=== PATIENT | female | born 1965 | race Caucasian/White ===

== ENCOUNTER 2018-06-22 14:37 | Emergency (ER) | payer SELFPAY ==
[~2018-06-22] VITALS: Ht 165.1 cm; Wt 66.7 kg
[2018-06-22 14:51] VITALS: BP_SYST 156
[2018-06-22 15:54] LABS: BILIRUBIN,URINE NEGATIVE (NEGATIVE); BLOOD, URINE 1+ (NEGATIVE); CLARITY/URINE CLOUDY (CLEAR); COLOR,URINE YELLOW (YELLOW); GLUCOSE,URINE NEGATIVE (NEGATIVE); KETONES,URINE NEGATIVE (NEGATIVE); LEUKOCYTE ESTERASE ,URINE 2+ (NEGATIVE); NITRITE, URINE POSITIVE (NEGATIVE); PROTEIN URINE NEGATIVE (NEGATIVE); UROBILINOGEN,URINE 0.2 (0.2-1.0)
[2018-06-22 17:00] LABS: BACTERIA,URINE MANY /HPF (None Seen); MUCUS,URINE 1+ /LPF (None Seen); WBC,URINE 20-50 /HPF (0-3)
[2018-06-22] MEDS ORDERED: NACL 0.9% 1,000 ML IV ONE (17:25)
[2018-06-22] MEDS ORDERED: fentaNYL CITRATE/PF 100 MCG/2 ML AMP IVP ONE ×2 (17:30→19:15)
[2018-06-22] MEDS ORDERED: KETOROLAC TROMETHAMINE 60 MG/2 ML VIAL IM ONE (17:30)
[2018-06-22] MEDS ORDERED: cefTRIAXone 1 GM IVPB PREMIX 50 ML IV ONE (17:30)
[2018-06-22] MEDS ORDERED: ONDANSETRON HCL 4 MG/2 ML VIAL IVP ONE ×2 (17:30→19:15)
[2018-06-22 17:47] LABS: BASOPHILS % (AUTO) 0.4 % (0.0-2.0); EOSINOPHILS # (AUTO) 0.1 K/uL (0.0-0.4); EOSINOPHILS % (AUTO) 2.1 % (0.0-4.0); HEMATOCRIT 41.8 % (36-48); HEMOGLOBIN 14.4 g/dL (12.0-16.0); LYMPHOCYTES # (AUTO) 1.7 K/uL (1.0-5.5); LYMPHOCYTES % (AUTO) 29.7 % (20.5-51.5); MEAN CORPUSCULAR HEMOGLOBIN 30 pg (27-31); MEAN CORPUSCULAR HGB CONC 34 % (32-36); MEAN CORPUSCULAR VOLUME 87 fL (79.0-98.0); MONOCYTES # (AUTO) 0.3 K/uL (0.0-1.0); MONOCYTES % (AUTO) 5.4 % (1.7-9.3); NEUTROPHILS # (AUTO) 3.7 K/uL (1.8-7.7); NEUTROPHILS % (AUTO) 62.4 % (40.0-70.0); PLATELET COUNT (AUTO) 244 K/uL (130-430); RED BLOOD CELL COUNT(AUTO) 4.79 MIL/uL (4.2-6.2); RED CELL DISTRIBUTION WIDTH 11.8 % (9.0-15.0); WHITE BLOOD COUNT (AUTO) 5.8 K/uL (4.8-10.8)
[2018-06-22 18:02] LABS: CALCIUM 9.1 mg/dL (8.4-11.0); CREATININE 0.67 mg/dL (0.55-1.30); POTASSIUM 3.5 mmol/L (3.5-5.1)
[2018-06-22 18:13] LABS: PROTHROMBIN TIME 9.9 SECS (9.5-12.5)
[2018-06-22 19:50] VITALS: BP_SYST 156
== END 2018-06-22 19:50 | disposition home or self-care (01) ==
LOC: SED 14:37
DX: N39.0 Urinary tract infection, site not specified (principal); Z88.0 Allergy status to penicillin; Z88.6 Allergy status to analgesic agent; Z87.442 Personal history of urinary calculi
CPT/HCPCS: 36415; 74176; 80048; 81000; 83605; 85025; 85610; 85730; 87040; 87086; 87186; 96365; 96372; 96375; 96376; 99284; J0696; J1885; J2405; J3010; J7030

== ENCOUNTER 2019-01-02 08:48 | Emergency (ER) | payer MEDICAID ==
[~2019-01-02] VITALS: Ht 165.1 cm; Wt 72.6 kg
[2019-01-02 08:52] VITALS: BP_SYST 151
--- NOTE | 2019-01-02 08:52 | NUR ---
Patient to ER bed 8 to gown for evaluation. Side rails up. Report given to ADRIEN George.
--- NOTE | 2019-01-02 08:53 | NUR ---
Patient is awake, alert, and oriented x4. Patient reports that she slipped and fell, landing and striking the dining room table last night around 2229. Patient presents with aching lower back pain 9/10, tender to touch. No bruising noted, skin is intact.
--- NOTE | 2019-01-02 09:03 | NUR ---
ER at bedside examining patient.
[2019-01-02] MEDS ORDERED: IBUPROFEN 600 MG TABLET PO ONE (09:15)
[2019-01-02] MEDS ORDERED: HYDROcodone/ACETAMIN 10-325 MG TAB PO ONE (09:15)
--- NOTE | 2019-01-02 09:21 | NUR ---
Patient transported to radiology via wheelchair, accompanied by mental health technician.
--- NOTE | 2019-01-02 09:33 | NUR ---
Returned from radiology, back to [facility].
[2019-01-02 10:11] LABS: BASOPHILS % (AUTO) 0.5 % (0.0-2.0); EOSINOPHILS # (AUTO) 0.1 K/uL (0.0-0.4); HEMATOCRIT 41.4 % (36-48); HEMOGLOBIN 13.8 g/dL (12.0-16.0); LYMPHOCYTES # (AUTO) 1.3 K/uL (1.0-5.5); LYMPHOCYTES % (AUTO) 23.9 % (20.5-51.5); MEAN CORPUSCULAR HEMOGLOBIN 30 pg (27-31); MEAN CORPUSCULAR HGB CONC 33 % (32-36); MEAN CORPUSCULAR VOLUME 90 fL (79.0-98.0); MONOCYTES # (AUTO) 0.4 K/uL (0.0-1.0); MONOCYTES % (AUTO) 6.5 % (1.7-9.3); NEUTROPHILS # (AUTO) 3.6 K/uL (1.8-7.7); NEUTROPHILS % (AUTO) 67.1 % (40.0-70.0); PLATELET COUNT (AUTO) 221 K/uL (130-430); RED BLOOD CELL COUNT(AUTO) 4.59 MIL/uL (4.2-6.2); RED CELL DISTRIBUTION WIDTH 12.9 % (9.0-15.0); WHITE BLOOD COUNT (AUTO) 5.4 K/uL (4.8-10.8)
[2019-01-02 10:14] LABS: BILIRUBIN,URINE NEGATIVE (NEGATIVE); BLOOD, URINE 1+ (NEGATIVE); CLARITY/URINE CLOUDY (CLEAR); COLOR,URINE YELLOW (YELLOW); GLUCOSE,URINE NEGATIVE (NEGATIVE); KETONES,URINE TRACE (NEGATIVE); LEUKOCYTE ESTERASE ,URINE 1+ (NEGATIVE); NITRITE, URINE NEGATIVE (NEGATIVE); PH,URINE 5.5 (5.0-8.0); PROTEIN URINE 1+ (NEGATIVE); UROBILINOGEN,URINE 0.2 (0.2-1.0)
[2019-01-02 10:24] LABS: CALCIUM 9.1 mg/dL (8.4-11.0); CREATININE 0.55 mg/dL (0.55-1.30); POTASSIUM 4.2 mmol/L (3.5-5.1)
[2019-01-02 10:24] LABS: BACTERIA,URINE MODERATE /HPF (None Seen)
[2019-01-02 10:25] LABS: URINE AMORPHOUS URATE 1+ /HPF (None Seen)
[2019-01-02 10:26] LABS: INR 0.9 (0.8-1.2); PROTHROMBIN TIME 9.5 SECS (9.5-12.5)
[2019-01-02 10:27] LABS: ALBUMIN 3.9 g/dL (3.4-4.8); TOTAL BILIRUBIN 0.2 mg/dL (0.0-1.0)
[2019-01-02] MEDS ORDERED: ONDANSETRON 4 MG ODT TAB PO ONE (10:45)
[2019-01-02] MEDS ORDERED: fentaNYL CITRATE/PF 100 MCG/2 ML AMP IM ONE (10:45)
--- NOTE | 2019-01-02 11:30 | NUR ---
Patient given written and verbal discharge instructions and verbalizes understanding. ER MD discussed with patient the results and treatment provided. Patient in stable condition. ID arm band removed. Rx of norco, motrin given. Patient educated on pain management and to follow up with PMD. Pain Scale 5/10, Dr. Carrizales is aware. Opportunity for questions provided and answered. Medication side effect fact sheet provided.
[2019-01-02 11:31] VITALS: BP_SYST 134
== END 2019-01-02 11:31 | disposition home or self-care (01) ==
LOC: SED 08:48
DX: S30.0XXA Contusion of lower back and pelvis, initial encounter (principal); Z88.0 Allergy status to penicillin; Z88.6 Allergy status to analgesic agent; Z87.442 Personal history of urinary calculi; W18.09XA Striking against other object with subsequent fall, initial encounter; Y93.89 Activity, other specified; Y92.89 Other specified places as the place of occurrence of the external cause; Y99.8 Other external cause status
CPT/HCPCS: 36415; 74176; 80053; 81000; 82150; 83690; 84703; 85025; 85610; 85730; 87086; 87186; 96372; 99284; J3010; Q0162

== ENCOUNTER 2019-03-13 07:28 | Emergency (ER) | payer MEDICAID ==
[~2019-03-13] VITALS: Ht 165.1 cm; Wt 69.4 kg
[2019-03-13 07:35] VITALS: BP_SYST 116
--- NOTE | 2019-03-13 07:43 | NUR ---
Patient to ER bed 2 to gown for evaluation. Side rails up. Patient placed on color television console monitor. Report given to Ariel JURADO.
--- NOTE | 2019-03-13 07:47 | NUR ---
Patient is awake, alert, and oriented x4. Patient reports fatigue, chest pain radiating down left arm, insomnia, dizziness and nausea x2 weeks. Patient reports a history of anxiety and her PCP put her on a medication regimen to control it 2-3 months ago. Patient asked to remain in bed with siderails up for her safety, patient verbalized understanding.
[2019-03-13] MEDS ORDERED: NACL 0.9% 1,000 ML IV ONE (07:49)
--- NOTE | 2019-03-13 07:50 | NUR ---
ER Dr. Wing at bedside examining patient.
[2019-03-13] MEDS ORDERED: LORazepam 2 MG/ML VIAL IVP ONE (08:00)
[2019-03-13] MEDS ORDERED: ASPIRIN 81 MG TAB.CHEW PO ONE (08:00)
--- NOTE | 2019-03-13 08:10 | NUR ---
2 unsuccessful IV attempts made. ADRIEN Ledezma to attempt.
[2019-03-13 08:41] LABS: BASOPHILS % (AUTO) 0.5 % (0.0-2.0); EOSINOPHILS # (AUTO) 0.1 K/uL (0.0-0.4); EOSINOPHILS % (AUTO) 1.6 % (0.0-4.0); HEMATOCRIT 39.1 % (36-48); HEMOGLOBIN 13.3 g/dL (12.0-16.0); LYMPHOCYTES # (AUTO) 1.1 K/uL (1.0-5.5); LYMPHOCYTES % (AUTO) 19.5 % (20.5-51.5); MEAN CORPUSCULAR HEMOGLOBIN 31 pg (27-31); MEAN CORPUSCULAR HGB CONC 34 % (32-36); MEAN CORPUSCULAR VOLUME 91 fL (79.0-98.0); MONOCYTES # (AUTO) 0.5 K/uL (0.0-1.0); MONOCYTES % (AUTO) 8.6 % (1.7-9.3); NEUTROPHILS % (AUTO) 69.8 % (40.0-70.0); PLATELET COUNT (AUTO) 192 K/uL (130-430); RED BLOOD CELL COUNT(AUTO) 4.29 MIL/uL (4.2-6.2); WHITE BLOOD COUNT (AUTO) 5.7 K/uL (4.8-10.8)
[2019-03-13 09:09] LABS: ANION GAP 10 (5-15); CALCIUM 8.5 mg/dL (8.4-11.0); CHLORIDE 103 mmol/L (98-107); CREATININE 0.57 mg/dL (0.55-1.30); GFR AFRICAN AMERICAN 144 mL/min (>90); GLUCOSE 99 mg/dL (70-99); POTASSIUM 3.9 mmol/L (3.5-5.1); SODIUM SERUM 137 mmol/L (136-145); UREA NITROGEN, BLOOD 18 mg/dL (8-21)
[2019-03-13] MEDS ORDERED: KETOROLAC TROMETHAMINE 30 MG VIAL IVP ONE (09:15)
[2019-03-13 09:22] LABS: ALANINE AMINOTRANSFERASE 33 U/L (12-78); ALBUMIN 3.7 g/dL (3.4-4.8); ASPARTATE AMINOTRANSFERASE 29 U/L (10-37); TOTAL BILIRUBIN 0.5 mg/dL (0.0-1.0)
--- NOTE | 2019-03-13 10:03 | NUR ---
Patient is calling a friend for a ride home.
[2019-03-13 10:06] VITALS: BP_SYST 136
--- NOTE | 2019-03-13 10:06 | NUR ---
Patient given written and verbal discharge instructions and verbalizes understanding. ER MD discussed with patient the results and treatment provided. Patient in stable condition. ID arm band removed. IV catheter removed intact and dressing applied, no active bleeding. Rx of xanax, motrin given. Patient educated on pain management and to follow up with PMD. Pain Scale 6/10, Dr. Wing is aware, patient states it is tolerable. Opportunity for questions provided and answered. Medication side effect fact sheet provided.
== END 2019-03-13 10:06 | disposition home or self-care (01) ==
LOC: SED 07:28
DX: R07.89 Other chest pain (principal); F43.9 Reaction to severe stress, unspecified; Z87.442 Personal history of urinary calculi; Z88.0 Allergy status to penicillin; Z88.6 Allergy status to analgesic agent
CPT/HCPCS: 36415; 71045; 80053; 84484; 85025; 96374; 96375; 99284; J1885; J2060; J7030; 99283

== ENCOUNTER 2019-04-01 01:02 | Emergency (ER) | payer MEDICAID ==
[~2019-04-01] VITALS: Ht 165.1 cm; Wt 69.4 kg
[2019-04-01 01:02] VITALS: BP_SYST 124
[2019-04-01 01:45] VITALS: BP_SYST 124
== END 2019-04-01 01:50 | disposition left against medical advice (07) ==
LOC: SED 01:02
DX: S00.81XA Abrasion of other part of head, initial encounter (principal); F10.129 Alcohol abuse with intoxication, unspecified; Z53.21 Procedure and treatment not carried out due to patient leaving prior to being seen by health care provider; W19.XXXA Unspecified fall, initial encounter; Y93.89 Activity, other specified; Y92.89 Other specified places as the place of occurrence of the external cause; Y99.8 Other external cause status

== ENCOUNTER 2020-01-03 02:38 | Emergency (ER) | payer MEDICAID ==
[~2020-01-03] VITALS: Ht 162.6 cm; Wt 72.6 kg
[2020-01-03 02:43] VITALS: BP_SYST 130
--- NOTE | 2020-01-03 02:43 | NUR ---
Patient to ER bed 02 to gown for evaluation. Side rails up. Report given to ADRIEN PONCE
--- NOTE | 2020-01-03 02:44 | NUR ---
ER at bedside examining patient.
--- NOTE | 2020-01-03 02:44 | NUR ---
Pt biba called by roomate who found her naked face down. According to EMT she was dropped off by two men. Pt took prozac and drank alcohol. Allergic to penicillin and morphine.
--- NOTE | 2020-01-03 02:50 | NUR ---
Pt is agitated, crying and screaming " we don't care". All vitals WNL and updated in interventions. aware.
--- NOTE | 2020-01-03 03:10 | NUR ---
Pt is now resting, symmetric chest rise and fall.
[2020-01-03] MEDS ORDERED: HALOPERIDOL LACTATE 5 MG/ML VIAL IM ONE (03:15)
--- NOTE | 2020-01-03 03:34 | NUR ---
Spoke to patient's son, Thai. Aware patient is in ED and resting, will call back at 6AM to know patients status.
--- NOTE | 2020-01-03 04:45 | NUR ---
Lab at bedside. No complaints at this time.
[2020-01-03 05:08] LABS: BASOPHILS % (AUTO) 0.6 % (0.0-2.0); EOSINOPHILS # (AUTO) 0.1 K/uL (0.0-0.4); HEMATOCRIT 38.6 % (36-48); HEMOGLOBIN 13.1 g/dL (12.0-16.0); LYMPHOCYTES # (AUTO) 1.6 K/uL (1.0-5.5); LYMPHOCYTES % (AUTO) 30.4 % (20.5-51.5); MEAN CORPUSCULAR HEMOGLOBIN 31 pg (27-31); MEAN CORPUSCULAR HGB CONC 34 % (32-36); MEAN CORPUSCULAR VOLUME 91 fL (79.0-98.0); MONOCYTES # (AUTO) 0.4 K/uL (0.0-1.0); MONOCYTES % (AUTO) 8.1 % (1.7-9.3); NEUTROPHILS # (AUTO) 3.1 K/uL (1.8-7.7); NEUTROPHILS % (AUTO) 58.9 % (40.0-70.0); PLATELET COUNT (AUTO) 192 K/uL (130-430); RED BLOOD CELL COUNT(AUTO) 4.24 MIL/uL (4.2-6.2); RED CELL DISTRIBUTION WIDTH 12.9 % (9.0-15.0); WHITE BLOOD COUNT (AUTO) 5.3 K/uL (4.8-10.8)
[2020-01-03 05:32] LABS: ALBUMIN 3.2 g/dL (3.4-4.8); CALCIUM 8.6 mg/dL (8.4-11.0); CREATININE 0.7 mg/dL (0.55-1.30); POTASSIUM 3.8 mmol/L (3.5-5.1)
[2020-01-03 05:41] LABS: TOTAL BILIRUBIN 0.1 mg/dL (0.0-1.0)
--- NOTE | 2020-01-03 06:15 | NUR ---
Patient is awake and oriented, does not recall coming in to the hospital. Called security to provide pants for patient.
--- NOTE | 2020-01-03 07:07 | NUR ---
Report given to ADRIEN Reynoso for continuation of care.
--- NOTE | 2020-01-03 07:15 | NUR ---
Assumed care of patient, report received from ADRIEN Villa. Pt currently resting in bed,will continue to monitor.
[2020-01-03 07:30] VITALS: BP_SYST 108
--- NOTE | 2020-01-03 07:30 | NUR ---
Patient given written and verbal discharge instructions and verbalizes understanding. ER MD discussed with patient the results and treatment provided. Patient in stable condition. ID arm band removed. No precriptions given. Patient educated on pain management and to follow up with PMD. Pain Scale 0. Opportunity for questions provided and answered. Medication side effect fact sheet provided.
== END 2020-01-03 07:30 | disposition home or self-care (01) ==
LOC: SED 02:38
DX: F10.129 Alcohol abuse with intoxication, unspecified (principal); Z87.442 Personal history of urinary calculi; Z88.0 Allergy status to penicillin; Z88.6 Allergy status to analgesic agent
CPT/HCPCS: 36415; 80053; 85025; 99283; G0482

== ENCOUNTER 2020-09-18 22:01 | Emergency (ER) | payer MEDICAID ==
[~2020-09-18] VITALS: Ht 165.1 cm; Wt 70.3 kg
[2020-09-18 22:15] VITALS: BP_SYST 132
[2020-09-18] MEDS ORDERED: ASPIRIN 325 MG TABLET PO ONE (22:30)
[2020-09-18 23:22] LABS: BASOPHILS % (AUTO) 0.5 % (0.0-2.0); EOSINOPHILS # (AUTO) 0.1 K/uL (0.0-0.4); EOSINOPHILS % (AUTO) 1.2 % (0.0-4.0); HEMATOCRIT 44.1 % (36-48); LYMPHOCYTES # (AUTO) 1.7 K/uL (1.0-5.5); LYMPHOCYTES % (AUTO) 27.1 % (20.5-51.5); MEAN CORPUSCULAR HEMOGLOBIN 31 pg (27-31); MEAN CORPUSCULAR HGB CONC 34 % (32-36); MEAN CORPUSCULAR VOLUME 93 fL (79.0-98.0); MONOCYTES # (AUTO) 0.5 K/uL (0.0-1.0); NEUTROPHILS % (AUTO) 63.2 % (40.0-70.0); PLATELET COUNT (AUTO) 243 K/uL (130-430); RED BLOOD CELL COUNT(AUTO) 4.77 MIL/uL (4.2-6.2); WHITE BLOOD COUNT (AUTO) 6.4 K/uL (4.8-10.8)
[2020-09-18 23:36] LABS: CALCIUM 8.8 mg/dL (8.4-11.0); CREATININE 0.71 mg/dL (0.55-1.30); POTASSIUM 3.7 mmol/L (3.5-5.1)
[2020-09-18 23:53] LABS: ALBUMIN 4.1 g/dL (3.4-4.8); TOTAL BILIRUBIN 0.2 mg/dL (0.0-1.0)
[2020-09-19] MEDS ORDERED: PANTOPRAZOLE SODIUM 40 MG/VIAL (PROTONIX) IVP ONE (00:15)
[2020-09-19] MEDS ORDERED: KETOROLAC TROMETHAMINE 30 MG VIAL IVP ONE (00:15)
[2020-09-19 01:55] VITALS: BP_SYST 133
== END 2020-09-19 01:55 | disposition home or self-care (01) ==
LOC: SED 22:01
DX: R07.89 Other chest pain (principal); Z88.0 Allergy status to penicillin; Z88.6 Allergy status to analgesic agent; Z87.442 Personal history of urinary calculi
CPT/HCPCS: 36415; 71045; 80053; 82550; 83880; 84484; 85025; 85379; 93005; 96374; 96375; 99285; C9113; J1885

== ENCOUNTER 2021-04-24 20:49 | Emergency (ER) | payer MEDICAID ==
--- NOTE | 2021-04-24 21:35 | NUR ---
Patient did not want to be seen. Patient left without being seen. No further treatment done with patient
== END 2021-04-24 21:35 | disposition left against medical advice (07) ==
LOC: SED 20:49
DX: F41.9 Anxiety disorder, unspecified (principal); Z53.21 Procedure and treatment not carried out due to patient leaving prior to being seen by health care provider

== ENCOUNTER 2022-07-16 19:23 | Observation (INO) | payer MEDICAID ==
[~2022-07-16] VITALS: Ht 165.1 cm; Wt 77.1 kg
[2022-07-16 19:23] VITALS: BP_SYST 134
[~2022-07-16 19:23] MED LIST: ASA81 PO; LIP20 PO; LOSA50TA3 PO; NOR10 PO; PRO20 PO; PRO40 PO; TRAZ-250 PO; TRAZ-251 PO
[2022-07-16] MEDS ORDERED: iohexoL 350 mgI/mL, 100 ML INFUS..BTL IV ONE (19:36)
[2022-07-16 20:02] LABS: BASOPHILS # (AUTO) 0.1 K/uL (0.0-0.2); BASOPHILS % (AUTO) 0.7 % (0.0-2.0); EOSINOPHILS # (AUTO) 0.2 K/uL (0.0-0.4); EOSINOPHILS % (AUTO) 1.9 % (0.0-4.0); HEMATOCRIT 42.9 % (36-48); HEMOGLOBIN 14.5 g/dL (12.0-16.0); LYMPHOCYTES # (AUTO) 2.8 K/uL (1.0-5.5); LYMPHOCYTES % (AUTO) 34.2 % (20.5-51.5); MEAN CORPUSCULAR HEMOGLOBIN 32 pg (27-31); MEAN CORPUSCULAR HGB CONC 34 % (32-36); MEAN CORPUSCULAR VOLUME 93 fL (79.0-98.0); MONOCYTES # (AUTO) 0.7 K/uL (0.0-1.0); NEUTROPHILS # (AUTO) 4.4 K/uL (1.8-7.7); NEUTROPHILS % (AUTO) 54.2 % (40.0-70.0); PLATELET COUNT (AUTO) 221 K/uL (130-430); RED CELL DISTRIBUTION WIDTH 12.9 % (9.0-15.0); WHITE BLOOD COUNT (AUTO) 8.2 K/uL (4.8-10.8)
[2022-07-16 20:16] LABS: ANION GAP 12 (5-15); CALCIUM 9.4 mg/dL (8.4-11.0); CHLORIDE 101 mmol/L (98-107); CREATININE 1.02 mg/dL (0.55-1.30); GLUCOSE 99 mg/dL (70-99); UREA NITROGEN, BLOOD 15 mg/dL (8-21)
[2022-07-16 20:20] LABS: PROTHROMBIN TIME 10.3 SECS (9.5-12.5)
[2022-07-16 20:34] LABS: ALANINE AMINOTRANSFERASE 132 U/L (12-78); ALBUMIN 3.7 g/dL (3.4-4.8); ASPARTATE AMINOTRANSFERASE 125 U/L (10-37); GFR AFRICAN AMERICAN 73 mL/min (>90); TOTAL BILIRUBIN 0.6 mg/dL (0.0-1.0)
[2022-07-16] MEDS ORDERED: HYDROcodone/ACETAMIN 10-325 MG TAB PO ONE (20:45)
[2022-07-16] MEDS ORDERED: ASPIRIN 81 MG TAB.CHEW PO ONE (20:45)
[2022-07-16] MEDS ORDERED: KETOROLAC TROMETHAMINE 30 MG VIAL ONE (21:34)
[2022-07-16] MEDS ORDERED: LORazepam 2 MG/ML VIAL ONE (21:44)
[2022-07-16] MEDS ORDERED: LORazepam 2 MG/ML VIAL IVP ONE (21:45)
[2022-07-16] MEDS ORDERED: KETOROLAC TROMETHAMINE 30 MG VIAL IVP ONE (21:45)
[2022-07-16] MEDS ORDERED: POTASSIUM CHLORIDE 20 MEQ TAB.PRT.SR PO PRN (22:15)
[2022-07-16] MEDS ORDERED: ZOLPIDEM TARTRATE 5 MG TABLET PO PRN (22:15)
[2022-07-16] MEDS ORDERED: NACL 0.9% 1,000 ML IV SCH (22:15)
[2022-07-16] MEDS ORDERED: LORazepam 2 MG/ML VIAL IVP PRN (22:15)
[2022-07-16] MEDS ORDERED: MUPIROCIN 2% TOPICAL OINTMENT 22 GM NS PRN (22:15)
[2022-07-16] MEDS ORDERED: DOCUSATE SODIUM 100 MG CAPSULE PO PRN (22:15)
[2022-07-16] MEDS ORDERED: MAGNESIUM SULFATE 50 ML IV PRN (22:15)
[2022-07-16] MEDS ORDERED: ACETAMINOPHEN 325 MG TABLET PO PRN (22:15)
[2022-07-16] MEDS ORDERED: ONDANSETRON HCL 4 MG/2 ML VIAL IVP PRN (22:15)
[2022-07-17] MEDS ORDERED: IBUPROFEN 800 MG TABLET PO PRN (01:00)
[2022-07-17 03:45] VITALS: BP_SYST 133
[2022-07-17 08:24] VITALS: BP_SYST 107
[2022-07-17] MEDS ORDERED: HYDROcodone/ACETAMIN 5-325 MG TAB (NORCO/ VICODIN) PO ONE (08:30)
[2022-07-17] MEDS ORDERED: amLODIPine BESYLATE 10 MG TABLET PO SCH (09:00)
[2022-07-17] MEDS ORDERED: ASPIRIN 81 MG TABLET(ECOTRIN) PO SCH (09:00)
[2022-07-17 11:29] VITALS: BP_SYST 110
[2022-07-17 11:50] VITALS: BP_SYST 110
[2022-07-17] MEDS ORDERED: ATORVASTATIN 20 MG TABLET PO SCH (21:00)
[2022-07-17] MEDS ORDERED: traZODone HCL 50 MG TABLET (DESYREL) PO SCH (21:00)
[2022-07-17] MEDS ORDERED: FLUoxetine HCL 20 MG CAPSULE (PROzac) PO SCH (21:00)
== END 2022-07-17 12:35 | disposition home or self-care (01) ==
LOC: SED 19:23 → SMU 21:27
PROVIDERS: ADMIT General Practice; ATTEND General Practice
DX: G90.9 Disorder of the autonomic nervous system, unspecified (principal); Z20.822 Contact with and (suspected) exposure to COVID-19; I10 Essential (primary) hypertension; F11.20 Opioid dependence, uncomplicated; R74.01 Elevation of levels of liver transaminase levels; E78.5 Hyperlipidemia, unspecified; Z86.718 Personal history of other venous thrombosis and embolism; Z88.0 Allergy status to penicillin
CPT/HCPCS: 36415; 70450-TC; 70496; 70498; 71045; 76376; 80053; 82962; 84484; 85025; 85610-TC; 85730-TC; 86886; 86900; 86901; 93970; 96361; 96374; 99291; G0378; J1885; J2060; Q9967